=== PATIENT | female | born 1960 | race Caucasian/White ===

== ENCOUNTER → 2016-03-29 | Outpatient (CLI) | payer BC | LOC: FIMAGING 18:29 | PROVIDERS: ATTEND Pain Medicine Interventional Pain Medicine | DX: M71.38 Other bursal cyst, other site (principal) ==

== ENCOUNTER → 2016-08-07 | Outpatient (CLI) | payer BC, OTHER | LOC: FIMAGING 15:31 | PROVIDERS: ATTEND Emergency Medicine | DX: M48.06 Spinal stenosis, lumbar region (principal); M46.96 Unspecified inflammatory spondylopathy, lumbar region; M71.38 Other bursal cyst, other site ==

== ENCOUNTER → 2016-10-06 | Outpatient (CLI) | payer BC | LOC: FIMAGING 13:26 | PROVIDERS: ATTEND Pain Medicine Interventional Pain Medicine | DX: M71.38 Other bursal cyst, other site (principal) ==

== ENCOUNTER → 2016-10-22 | Outpatient (CLI) | payer BC | LOC: FIMAGING 09:28 | PROVIDERS: ATTEND Internal Medicine | DX: K59.00 Constipation, unspecified (principal); K21.9 Gastro-esophageal reflux disease without esophagitis ==

== ENCOUNTER 2017-08-15 10:47 | Emergency (ER) | payer BC ==
[2017-08-15] MEDS ORDERED: CEPHALEXIN 500 MG CAP PO ONE (12:20)
[2017-08-15] MEDS ORDERED: TDAP ADULT 0.5 ML INJ (BOOSTRIX) IM ONE (12:20)
--- NOTE | 2017-08-15 12:20 | EDPHY ---
H & P Time Seen by Provider: 08/15/17 11:39 HPI/ROS: CHIEF COMPLAINT: Possible infection right medial calcaneus region HISTORY OF PRESENT ILLNESS: 57-year-old immunocompetent female complaining of progressively enlarging in painful erythema to the right medial calcaneus, possibly secondary to a puncture wound, possible retained foreign body. Reproducible pain with palpation and weight-bearing. No falls. No fever chills no nausea no vomiting no flu-like symptoms. Tetanus is out-of-date. REVIEW OF SYSTEMS: A ten point review of systems was performed and is negative with the exception of the items mentioned in the HPI PHYSICAL EXAM (Prior to examination, patient consented to physical exam, hands were washed and my usual and customary physical exam procedures followed) 1) GENERAL: Well-developed, well-nourished, alert and oriented. Appears to be in no acute distress. 2) HEAD: Normocephalic 3) HEENT: Pupils equal, round, reactive to light bilaterally. 4) LUNGS: Breathing comfortably. 5) MUSCULOSKELETAL: Right medial calcaneus area of erythema with lymphangitic streaking extending 3 cm proximally. There is a central area of fluctuance with no drainage. Soft compartments. proximal tibia and fibula nontender .5th MT nontender negative Mensah test, compartments soft 6) SKIN: No crepitus. 7) VASCULAR: DP,PT pulses and cap refill present and brisk DIFFERENTIAL DIAGNOSIS: in no particular order including but not limited to fracture, sprain, compartment syndrome Procedure: Drainage of fluctuance The patient's area of fluctuance was located on the right medial calcaneal. I obtained verbal consent from the patient who was informed about the possibility of bleeding and pain. The area of fluctuance was incised with a scalpel and a mild amount of purulent drainage was expressed. This was cultured. I irrigated the wound. The patient tolerated the procedure well. The procedure was performed by myself. Smoking Status: Never smoked Constitutional: Initial Vital Signs Temperature (C) 36.5 C 08/15/17 11:02 Heart Rate 54 L 08/15/17 11:02 Respiratory Rate 16 08/15/17 11:02 Blood Pressure 104/66 08/15/17 11:02 O2 Sat (%) 98 08/15/17 11:02 O2 Delivery Mode Room Air Allergies/Adverse Reactions: codeine Allergy (Verified 12/17/13 07:52) gluten Allergy (Verified 07/27/14 18:46) Home Medications: Medication Instructions Recorded [place] Thyroid 08/15/17 Cephalexin [Keflex] 500 mg PO TID 10 Days cap 08/15/17 Loestrin 21 1-20 Tablet 08/15/17 Progesterone 08/15/17 Trintellix 08/15/17 MDM/Departure - MDM Imaging Results: Imaging Impressions Extremity Ultrasound 08/15/17 12:18 Impression: No evidence for a foreign body in the right heel pad. Results called and discussed with Matt Conde PA-C, on August 15, 2017 at 1339. Images reviewed by myself Medications Given: Discontinued Medications Cephalexin (Keflex 500 Mg Prepack#4) 1 btl TAKEHOME EDNOW ONE PRN Reason: Protocol Stop: 08/15/17 13:49 Last Admin: 08/15/17 13:54 Dose: 1 btl Cephalexin HCl (Keflex) 500 mg PO EDNOW ONE PRN Reason: Protocol Stop: 08/15/17 12:21 Last Admin: 08/15/17 12:39 Dose: 500 mg Diphtheria/Tetanus/Acell Pertussis (Boostrix) 0.5 ml IM .ONCE ONE Stop: 08/15/17 12:21 Last Admin: 08/15/17 12:41 Dose: 0.5 ml Ibuprofen (Motrin) 800 mg PO EDNOW ONE Stop: 08/15/17 13:03 Last Admin: 08/15/17 13:05 Dose: 800 mg ED Course/Re-evaluation: Re-evaluation with serial examinations. Patient had a small area of fluctuance to the right medial calcaneus which is open by myself and drained and cultured. Doubt necrotizing fasciitis. Doubt osteomyelitis. She was concerned that she may have a vegetative foreign body. Ultrasound was negative for definitive foreign body. We did discuss the limitations of imaging. At this time I do not think that further diagnostic studies are indicated. I have recommended initiation of antibiotic therapy. I recommended elevation. Recommend close recheck. She is leaving for her home [place] for the next 4 weeks. She states that she is able to follow-up medical care there, they have a friend who is a hand surgeon there. Usual and customary wound precautions and instructions provided. She feels comfortable being discharged. I saw this patient independently based on established practice protocols. Care of patient under supervision of secondary supervising physician Dr Burkett. - Depart Disposition: Home, Routine, Self-Care Clinical Impression: Cellulitis of right foot Condition: Good Instructions: Cephalexin (By mouth), Cellulitis (ED) Additional Instructions: Return to the ER if you develop redness, swelling, discharge, warmth to the wound, red streaks going up your leg, or any other symptoms that concern you. Prescriptions: Cephalexin [Keflex] 500 mg PO TID 10 Days cap Referrals: RG BYRNE [Primary Care Provider] - 2-3 days, call for appt.
[2017-08-15] MEDS ORDERED: IBUPROFEN 800 MG TAB PO ONE (13:02)
[2017-08-15] MEDS ORDERED: CEPHALEXIN 500MG PREPACK#4 BTL TAKEHOME ONE (13:48)
[2017-08-15 13:54] VITALS: BP 114/72
== END 2017-08-15 14:01 | disposition home or self-care (01) ==
PROC: 0H9MXZZ Drainage of Right Foot Skin, External Approach (ICD-10-PCS; principal; 2017-08-15)
DX: L03.115 Cellulitis of right lower limb (principal); Z23 Encounter for immunization

== ENCOUNTER 2017-09-28 | Emergency (ER) | payer BC | END 2017-09-28 08:57 | disposition home or self-care (01) | DX: L03.115 Cellulitis of right lower limb (principal); L03.116 Cellulitis of left lower limb; Z86.14 Personal history of Methicillin resistant Staphylococcus aureus infection; E03.9 Hypothyroidism, unspecified; F32.9 Major depressive disorder, single episode, unspecified | CPT/HCPCS: 96365; 96366; J3370 ==

== ENCOUNTER 2017-09-28 | Emergency (ER) | payer BC | END 2017-09-28 20:48 | disposition home or self-care (01) ==

== ENCOUNTER 2017-09-29 | Emergency (ER) | payer BC | END 2017-09-29 22:08 | disposition home or self-care (01) | PROC: 0H9MXZZ Drainage of Right Foot Skin, External Approach (ICD-10-PCS; principal; 2017-09-29) ==

== ENCOUNTER 2017-09-29 | Emergency (ER) | payer BC | END 2017-09-29 09:48 | disposition home or self-care (01) ==

== ENCOUNTER 2017-09-30 | Emergency (ER) | payer BC | END 2017-09-30 22:21 | disposition home or self-care (01) ==

== ENCOUNTER 2017-09-30 | Emergency (ER) | payer BC | END 2017-09-30 10:15 | disposition home or self-care (01) ==

== ENCOUNTER 2017-10-23 10:10 | Day surgery (SDC) | payer BC ==
--- NOTE | 2017-10-23 10:17 | PDANEPAE ---
ANE History of Present Illness vascular access port placement ANE Past Medical History - Cardiovascular History Hx Hypertension: No Hx Arrhythmias: No Hx Chest Pain: No Hx Coronary Artery / Peripheral Vascular Disease: No Hx CHF / Valvular Disease: No Hx Palpitations: No Cardiovascular History Comment: states she has low pulse - Pulmonary History Hx COPD: No Hx Asthma/Reactive Airway Disease: No Hx Recent Upper Respiratory Infection: No Hx Oxygen in Use at Home: No Hx Sleep Apnea: No Sleep Apnea Screening Result - Last Documented: Negative - Neurologic History Hx Cerebrovascular Accident: No Hx Seizures: No Hx Dementia: No Neurologic History Comment: compression fx in neck. sciatic pain - Endocrine History Hx Diabetes: No Obesity: no Endocrine History Comment: hypothyroidism - Renal History Hx Renal Disorders: No - Liver History Hx Hepatic Disorders: No - Neurological & Psychiatric Hx Hx Neurological and Psychiatric Disorders: Yes Neurological / Psychiatric History Comment: depression - Cancer History Hx Cancer: No - Congenital Disorder History Hx Congenital Disorders: No - GI History GERD: no Hx Gastrointestinal Disorders: Yes Gastrointestinal History Comment: chronic constipation depends on colonic once a week. SIBO- methane - Other Health History Other Health History: wears reading glasses - Chronic Pain History Chronic Pain: Yes (neck pain) - Surgical History Prior Surgeries: breast surgery to remove cyst. breast biopsy. . 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 ANE Review of Systems Review of systems is: negative Review of Systems: - Exercise capacity METS (RN): 4 METS ANE Patient History - Allergies Allergies/Adverse Reactions: almond Allergy (Verified 10/22/17 12:47) codeine Allergy (Verified 10/22/17 12:47) hasn't had since 11 yo- lips swelled egg [eggs] Allergy (Verified 10/22/17 12:47) Unknown gluten Allergy (Verified 10/22/17 12:47) has cut out since diet and been better Yeast Allergy (Verified 10/22/17 12:47) upsets stomach tapioca Allergy (Uncoded 10/22/17 12:47) - Home Medications Home medications: home medication list seen and reviewed Home Medications: [place] Thyroid 08/15/17 [Last Taken Unknown] Loestrin 21 1-20 Tablet 08/15/17 [Last Taken Unknown] Progesterone 08/15/17 [Last Taken Unknown] Trintellix 08/15/17 [Last Taken Unknown] Deplin 10/22/17 [Last Taken Unknown] Kavanese To Sleep 10/22/17 [Last Taken Unknown] Mullan-3 10/22/17 [Last Taken Unknown] - Anes Hx Anes Hx: no prior problems - Smoking Hx Smoking Status: Never smoked - Family Anes Hx Family Hx Anesthesia Complications: none ANE Labs/Vital Signs - Vital Signs Height: 160.02 cm Weight: 51.7 kg ANE Physical Exam - Airway Neck exam: FROM Mallampati Score: Class 2 Mouth exam: normal dental/mouth exam - Pulmonary Pulmonary: no respiratory distress - Cardiovascular Cardiovascular: regular rate and rhythym - ASA Status ASA Status: II ANE Anesthesia Plan Anesthesia Plan: GA with mask
[2017-10-23] MEDS ORDERED: fentaNYL 100 MCG/2 ML INJ ONE (10:20)
[2017-10-23] MEDS ORDERED: PROPOFOL 200 MG/20 ML VIAL ONE ×2 (10:20→11:08)
[2017-10-23] MEDS ORDERED: LIDOCAINE 2% 2 ML INJ ONE (10:22)
--- NOTE | 2017-10-23 10:22 | PDHPUP ---
History & Physical Update H&P update statement: This history and physical update is based on an assessment of the patient which was completed after admission or registration (within 24 hours), but prior to the surgery/procedure. H&P update: H&P reviewed & patient examined, no change in patient's condition since H&P completed
[2017-10-23] MEDS ORDERED: LR 1,000 ML IV ONE (10:27)
[2017-10-23] MEDS ORDERED: MIDAZOLAM 2 MG/2 ML VIAL IVP ONE (10:33)
[2017-10-23] MEDS ORDERED: BUPIVACAINE 0.5% 30 ML SDV ONE (10:33)
[2017-10-23] MEDS ORDERED: VANCOMYCIN HCL/NORMAL SALINE 250 ML IV ONE (10:33)
[2017-10-23] MEDS ORDERED: MIDAZOLAM 2 MG/2 ML VIAL ONE (10:34)
--- NOTE | 2017-10-23 10:57 | POSTANESTH ---
Post Anesthetic Evaluation Cardiovascular Status: Normal, Stable Respiratory Status: Normal, Stable Level of Consciousness/Mental Status: Can Participate in Eval, Alert and Oriented Pain Control: Adequate, Prn Tx Ordered Nausea/Vomiting Control: Adequate, Prn Tx Ordered Complications Possibly Related to Anesthesia: None Noted
[2017-10-23] MEDS ORDERED: oxyCODONE IR 5 MG TAB PO PRN (11:36)
[2017-10-23] MEDS ORDERED: ACETAMINOPHEN 500 MG TAB PO PRN (11:36)
[2017-10-23] MEDS ORDERED: ONDANSETRON 4 MG/2 ML VIAL IVP PRN (11:36)
[2017-10-23] MEDS ORDERED: HYDROmorphONE/DILAUDID 1 MG/ML INJ IVP PRN (11:36)
[2017-10-23] MEDS ORDERED: LR 500 ML IV PRN (11:36)
[2017-10-23] MEDS ORDERED: NALOXONE HCL 0.4 MG/ML INJ IVP PRN (11:36)
[2017-10-23] MEDS ORDERED: LABETALOL HCL 5 MG/ML 20 ML MDV IVP PRN (11:36)
[2017-10-23] MEDS ORDERED: fentaNYL 100 MCG/2 ML INJ IVP PRN (11:36)
[2017-10-23] MEDS ORDERED: ALBUTEROL 3 ML DEYVIAL IH PRN (11:36)
[2017-10-23] MEDS ORDERED: PROMETHAZINE HCL 25 MG/ML INJ IVP PRN (11:36)
[2017-10-23] MEDS ORDERED: HYDROCODONE/APAP 5/325 TAB PO PRN (11:36)
--- NOTE | 2017-10-23 12:37 | POSTOPPROG ---
Post Op Note Date of Operation: 10/23/17 Surgeon: Dhaval Pringle Anesthesiologist: CONCEPCION Anesthesia: IV Sedation Pre-op Diagnosis: LYME DISEASE Post-op Diagnosis: SAME Indication: IV ACCESS Procedure: LEFT SUBCLAVIAN PORT PLACEMENT WITH FLUOROSCOPIC GUIDANCE Findings: GOOD POSITION AND FLOW Inf/Abcess present in the surg proc area at time of surgery?: No Depth: Deep Incisional (Fascial) EBL: Minimal Complications: NONE
[2017-10-23 12:59] VITALS: BP 127/75
--- NOTE | 2017-10-23 18:31 | GOP ---
DATE OF OPERATION: 10/23/2017 SURGEON: Dhaval Pringle MD PREOPERATIVE DIAGNOSIS: Lyme disease. POSTOPERATIVE DIAGNOSIS: Lyme disease. PROCEDURE PERFORMED: Left subclavian port placement with fluoroscopic guidance. FINDINGS: Patient was found to have good position and good flow. Postop chest x-ray reveals no evid ence of pneumothorax. DESCRIPTION OF PROCEDURE: Patient was taken to the operating room where she received satisfactory IV sedation and monitored anesthesia care by Dr. Collazo. She was placed in a supine position, preppe d and draped in the usual sterile fashion. She was then placed in Trendelenburg. A single stick was made in the left subclavian vein. Guidewire was introduced. Position was confirm ed with fluoroscopy. A subcu pocket was made in the second intercostal space. Port tubing was passe d from that pocket to the subclavian insertion site. It was trimmed to the appropriate length using fluoroscopic guidance and introduced via the introducer sheath into the right atrium. Good backflow was achieved. The catheter was flushed with heparin and saline. Port was secured to the fascia with 3-0 Vicryl. Pocket was closed with 3-0 Vicryl suture, and the skin with a 4-0 Monocryl subcuticular stitch. The entrance site was closed with 4-0 Monocryl subcuticular suture. Both wounds were then dressed with Dermabond glue. She tolerated the procedure well, taken to recovery room in good condit ion. COMPLICATIONS: None. /[id number]/MODL
== END 2017-10-23 13:12 | disposition home or self-care (01) ==
LOC: FSGY 10:10
PROVIDERS: ATTEND Surgery
DX: A69.20 Lyme disease, unspecified (principal); E03.9 Hypothyroidism, unspecified; F32.9 Major depressive disorder, single episode, unspecified; K59.09 Other constipation
CPT/HCPCS: C1788; J1642; J2250; J2704; J3010; J3370